=== PATIENT | female | born 1980 | race Caucasian/White ===

== ENCOUNTER 2023-03-11 14:57 | Emergency (ER) | payer MEDICAID, SELFPAY ==
[2023-03-11 15:13] VITALS: BP 128/86; PULSE 87; RESP 18; TEMP 36.1; O2SAT 98
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
[2023-03-11 15:50] LABS: Abs Immature Grans 0.03 10^3/uL (0.0-0.06); Absolute Basophil Count 0.03 10^3/uL (0.0-0.2); Absolute Eosinophil Count 0.06 10^3/uL (0.0-0.7); Absolute Lymphocyte Count 2.23 10^3/uL (1.2-3.4); Absolute Monocyte Count 0.65 10^3/uL (0.1-0.8); Absolute Neutrophil Count 6.55 10^3/uL (1.2-6.7); Basophils % 0.3; Eosinophils % 0.6; HCT 41.3 % (36.0-46.0); HGB 13.9 g/dL (11.2-15.7); Immature Grans % 0.3; Lymphocytes % 23.4; MCH 30.8 pg (27.0-33.0); MCHC 33.7 % (32.0-36.0); MCV 92 fL (80-95); MPV 9.4 fL (8.0-11.0); Monocytes % 6.8; Neutrophils % 68.6; Platelet Count 375 10^3/uL (130-400); RBC 4.51 10^6/uL (3.93-5.22); RDW-SD 43.3 fL; WBC 9.55 10^3/uL (4.4-10.8)
[2023-03-11 15:55] LABS: *AMPHETAMINES SCREEN URINE Negative (Negative); *BARBITURATES SCREEN URINE Negative (Negative); *BENZODIAZEPINES SCREEN URINE Negative (Negative); Cannabinoids THC Positive (Negative); Cocaine Screen,Urine Negative (Negative); METHADONE URINE SCREEN Positive (Negative); OPIATES URINE SCREEN Negative (Negative)
[2023-03-11 15:58] LABS: Tricyclic Antidepressants Negative (Negative)
[2023-03-11 16:16] LABS: ALT 29 U/L (14-59); AST 15 U/L (15-37); Alkaline Phosphatase 67 U/L (46-116); Anion Gap 9.6 mmol/L (3-11); BUN 11 mg/dL (7-18); Bilirubin, Total 0.3 mg/dL (0.2-1.0); CO2 28.4 mmol/L (21.0-32.0); CREATININE 0.9 mg/dL (0.55-1.02); Calcium 9.2 mg/dL (8.5-10.1); Chloride 103 mmol/L (98-107); Estimated GFR 82.37 (mL/min/1.73m2); Glucose 113 mg/dL (74-106); Potassium 3.9 mmol/L (3.5-5.1); Sodium 141 mmol/L (136-145); TSH (W/Ref FT4) 0.95 uIU/mL (0.36-3.74); Total Protein 7.9 g/dL (6.4-8.2)
[2023-03-11 16:17] LABS: ETHANOL BLOOD < 3.0 mg/dL (<10)
[2023-03-11 16:19] LABS: Acetaminophen < 2 ug/mL (10-30); Salicylate 5.8 mg/dL (<2.8)
[2023-03-11] MEDS: Methadone 10 MG TAB 50 MG PO (17:37)
[2023-03-11 17:38] VITALS: BP 128/80; PULSE 85; RESP 20; TEMP 36.8; O2SAT 99
== END 2023-03-11 17:39 | disposition home or self-care (01) ==
PROVIDERS: Emergency Provider Student in an Organized Health Care Education/Training Program
DX: F11.90 Opioid use, unspecified, uncomplicated (principal); F43.10 Post-traumatic stress disorder, unspecified
CPT/HCPCS: 80053; 80307; 87426; 99283; 80320; 80329; 84443; 85025